=== PATIENT | male | born 1990 | race Two or more races ===

== ENCOUNTER 2025-03-13 22:33 | Emergency (ER) | payer BC ==
[2025-03-13 22:37] VITALS: RESP 18
--- NOTE | 2025-03-13 23:33 | ED ---
General Adult HPI - General Chief complaint: Abdominal Pain Stated complaint: abd pain Time Seen by Provider: 03/13/25 22:50 Source: patient, RN notes reviewed Mode of arrival: ambulatory Limitations: no limitations - History of Present Illness Initial comments: This is a 35-year-old male presenting for abdominal pain x 2 hours. Patient states he woke this morning at 0300 with associated nausea and dry heaving. Patient states pain resolved on its own before returning prior to ER arrival. Describes pain as pressure/stabbing that radiates to his back. Patient states his last bowel movement was yesterday. Endorses use of a Metamucil type medication with minimal relief. Onset/Timin -: hour(s) Location: abdomen Radiation: back Quality: stabbing, dull Consistency: constant - Related Data Allergies Allergy/AdvReac Type Severity Reaction Status Date / Time Fish Containing Products Allergy Swelling Verified 03/13/25 22:37 Review of Systems ROS Statement: Those systems with pertinent positive or pertinent negative responses have been documented in the HPI. ROS Other: All systems not noted in ROS Statement are negative. Past Medical History Past Medical History: No Reported History History of Any Multi-Drug Resistant Organisms: None Reported Past Surgical History: No Surgical Hx Reported Past Psychological History: No Psychological Hx Reported Smoking Status: Never smoker Past Alcohol Use History: Occasional Past Drug Use History: None Reported General Exam Limitations: no limitations Course Vital Signs 03/13/25 22:34 Temperature 98.5 F Pulse Rate 95 Respiratory 18 Rate Blood Pressure 148/97 O2 Sat by Pulse 99 Oximetry Medical Decision Making - Medical Decision Making Was pt. sent in by a medical professional or institution (, PA, [employer], urgent care, hospital, or long term...) When possible be specific @ -[No] Did you speak to anyone other than the patient for history (EMS, parent, family, police, friend...)? What history was obtained from this source @ -[No] Did you review nursing and triage notes (agree or disagree)? Why? @ -[I reviewed and agree with nursing and triage notes] Were old charts reviewed (outside hosp., previous admission, EMS record, old EKG, old radiological studies, urgent care reports/EKG's, long term records)? Report findings @ -[No old charts were reviewed] Differential Diagnosis (chest pain, altered mental status, abdominal pain women, abdominal pain men, vaginal bleeding, weakness, fever, dyspnea, syncope, headache, dizziness, GI bleed, back pain, seizure, CVA, palpatations, mental health, musculoskeletal)? @ -Differential Abdominal Pain Men: Appendicitis, cholecystitis, diverticulosis, ischemic bowel, pancreatitis, hepatitis, UTI, gastroenteritis, AAA, incarcerated hernia, bowel obstruction, constipation, inflammatory bowel, hepatitis, peptic ulcer disease, splenic infarction, perforated viscus, testicular torsion, this is not meant to be an all-inclusive list EKG interpreted by me (3pts min.). @ -Not done X-rays interpreted by me (1pt min.). @ -[None done] CT interpreted by me (1pt min.). @ -[None done] U/S interpreted by me (1pt. min.). @ -[None done] What testing was considered but not performed or refused? (CT, X-rays, U/S, labs)? Why? @ -[None] What meds were considered but not given or refused? Why? @ -[None] Did you discuss the management of the patient with other professionals (professionals i.e. , PA, [employer]ING [employer]SULTANT, lab, RT, psych nurse, social service technician, data analytics architect, teacher, branch lending officer, medical case worker)? Give summary @ -[No] Was smoking cessation discussed for >3mins.? @ -[No] Was critical care preformed (if so, how long)? @ -[No] Were there social determinants of health that impacted care today? How? (Homelessness, low income, unemployed, alcoholism, drug addiction, transportation, low edu. Level, literacy, decrease access to med. care, shelter, rehab)? @ -[No] Was there de-escalation of care discussed even if they declined (Discuss DNR or withdrawal of care, Hospice)? DNR status @ -[No] What co-morbidities impacted this encounter? (DM, HTN, Smoking, COPD, CAD, Cancer, CVA, ARF, Chemo, Hep., AIDS, mental health diagnosis, sleep apnea, morbid obesity)? @ -[None] Was patient admitted / discharged? Hospital course, mention meds given and route, prescriptions, significant lab abnormalities, going to OR and other pertinent info. @ -[hospital course] Undiagnosed new problem with uncertain prognosis? @ -[No] Drug Therapy requiring intensive monitoring for toxicity (Heparin, Nitro, Insulin, Cardizem)? @ -[No] Were any procedures done? @ -[No] Diagnosis/symptom? @ -[default] Acute, or Chronic, or Acute on Chronic? @ -Acute Uncomplicated (without systemic symptoms) or Complicated (systemic symptoms)? @ -[default] Side effects of treatment? @ -[No] Exacerbation, Progression, or Severe Exacerbation? @ -[No] Poses a threat to life or bodily function? How? (Chest pain, USA, VT, pneumonia, PE, COPD, DKA, ARF, appy, cholecystitis, CVA, Diverticulitis, Homicidal, Suicidal, threat to staff... and all critical care pts) @ -[No] Disposition Clinical Impression: Constipation Disposition: HOME SELF-CARE Condition: Fair Instructions (If sedation given, give patient instructions): Constipation (ED), High Fiber Diet (ED), Fleet Enema (ED) Additional Instructions: MiraLAX once daily as needed for constipation. Increase water, prune juice and soluble/insoluble fiber intake. Follow-up with PCP regarding any ongoing symptoms. Return to ER if experiencing worsening abdominal pain or fever. Is patient prescribed a controlled substance at d/c from ED?: No Referrals: None,Stated [Primary Care Provider] - 1-2 days Livan Rivera MD [STAFF PHYSICIAN] - 1-2 days Poonam Delgado MD [STAFF PHYSICIAN] - 1-2 days Time of Disposition: 01:50
--- NOTE | 2025-03-13 23:49 | XR ---
EXAMINATION TYPE: XR KUB DATE OF EXAM: 03/13/2025 COMPARISON: NONE HISTORY: Pain TECHNIQUE: Single upright KUB image of the abdomen is obtained FINDINGS: Paucity of small bowel gas without evidence for dilatation or air fluid levels. Gas and fecal material is seen in non-distended right colon. No convincing evidence for pneumoperitoneum. No unusual calcifications. The lung bases are clear. The osseous structures are intact. IMPRESSION: Overall nonobstructive bowel gas pattern. [facility], , 03/13/2025 11:47 PM
[2025-03-14 01:59] VITALS: BP 128/85; PULSE 77; TEMP 98.6
[2025-03-14] MEDS: MINERAL OIL 133 ML ENEMA RECTAL STA (02:01)
[2025-03-14] MEDS: NA PHOS,M-B/NA PHOS,DI-BA 133 ML ENEMA RECTAL STA (02:01)
[2025-03-14] MEDS: MAGNESIUM CITRATE 296 ML BOTTLE PO ONE (02:01)
== END 2025-03-14 02:04 | disposition home or self-care (01) ==
LOC: EC 22:33
DX: K59.00 Constipation, unspecified (principal); Z91.013 Allergy to seafood
CPT/HCPCS: 74018; 99284

== ENCOUNTER → 2025-03-15 | Outpatient (CLI) | payer BC ==
--- NOTE | 2025-03-15 17:58 | CT ---
EXAMINATION TYPE: CT abdomen pelvis w con CT DLP: 5969.7 mGycm, Automated exposure control for dose reduction was used. DATE OF EXAM: 03/15/2025 5:01 PM COMPARISON: KUB radiograph 03/13/2025 CLINICAL INDICATION:Male, 35 years old with history of R10.30 LOWER ABDOMINAL PAIN, UNSPECIFIED; ABDO CARMEN PAIN AND CONSTIPATION TECHNIQUE: Standard CT of the abdomen and pelvis following the administration of 100 cc of Isovue 3 00 IV contrast material and oral contrast. Coronal and sagittal reformats were performed. FINDINGS: LOWER CHEST: Unremarkable ABDOMEN LIVER: Unremarkable GALLBLADDER AND BILE DUCTS: Unremarkable. PANCREAS: Unremarkable. SPLEEN: Unremarkable. ADRENAL GLANDS: Unremarkable. KIDNEYS AND URETERS: No left-sided hydronephrosis. No left renal calculi. Minimal left hydroureterone phrosis with an obstructing 4 mm calculus at the ureteropelvic junction. Nonobstructing right renal 2 mm calculus. Slightly delayed enhancement of the right kidney compared to the left. Contrast is dem onstrated only within the left collecting system and proximal ureter on the delayed phase. PELVIS BLADDER: Underdistended but grossly unremarkable. REPRODUCTIVE: Unremarkable. ABDOMEN & PELVIS STOMACH AND BOWEL: Stomach and duodenum are unremarkable. Enteric contrast reaches the mid small luis l. No focal bowel wall thickening or surrounding inflammatory changes. No evidence of bowel obstructi on. PERITONEUM: No evidence of pneumoperitoneum or free fluid. VASCULATURE: No evidence of aortic aneurysm. MUSCULOSKELETAL: No acute osseous abnormalities LYMPH NODES: No evidence for lymphadenopathy. SOFT TISSUE/ABDOMINAL WALL: Fat filled left inguinal hernia. IMPRESSION: Minimal right hydroureteronephrosis with an obstructing 4 mm calculus at the ureteropelvic junction. Additional nonobstructing right renal 2 mm calculus. [facility], , 03/15/2025 5:56 PM
== END | disposition home or self-care (01) ==
LOC: RADCTMAIN 14:34
PROVIDERS: ATTEND Emergency Medicine
DX: N13.2 Hydronephrosis with renal and ureteral calculous obstruction (principal)
CPT/HCPCS: 74177; Q9967